=== PATIENT | male | born 1970 | race African-American/Black ===

== ENCOUNTER 2017-12-23 14:31 | Emergency (ER) | payer MEDICAID ==
[~2017-12-23] VITALS: Ht 175.3 cm; Wt 91.0 kg
[2017-12-23] MEDS ORDERED: MORPHINE SULFATE 4 MG/ML CPJ (NOT FOR IM USE) IV STA (15:03)
[2017-12-23] MEDS ORDERED: ONDANSETRON HCL 4MG/2ML VIAL IV STA (15:03)
[2017-12-23] MEDS ORDERED: SODIUM CHLORIDE 0.9% 1,000 ML IV ONE (15:03)
[2017-12-23] MEDS ORDERED: MORPHINE SULFATE 10 MG/ML CPJ IV ONE (17:45)
[2017-12-23] MEDS ORDERED: ENALAPRIL 2.5MG/2ML VIAL 2ML IV ONE (18:45)
[2017-12-23 19:02] VITALS: BP 159/95
== END 2017-12-23 19:43 | disposition short-term general hospital (02) ==
LOC: ER 15:02
DX: T23.209A Burn of second degree of unspecified hand, unspecified site, initial encounter (principal); T31.0 Burns involving less than 10% of body surface; W40.8XXA Explosion of other specified explosive materials, initial encounter; Y93.89 Activity, other specified; Y92.9 Unspecified place or not applicable; I10 Essential (primary) hypertension
CPT/HCPCS: 82962; 96361; 96374; 96375; 96376; 99291; A4217; J2270; J2405; J3490; J7030; X7700; Z7610